=== PATIENT | male | born 1955 | race Caucasian/White ===

== ENCOUNTER 2017-02-09 07:07 | Day surgery (SDC) | payer OTHER ==
[2017-01-29 14:04] VITALS: BMI 30.7
[2017-02-09] MEDS: CYCLOPENTOLATE 2% OPHTH SOLN 2 ML BOTTLE ONE ×3 (07:40→07:50)
[2017-02-09] MEDS: TROPICAMIDE 1% OPHTH SOLN 15 ML BOTTLE ONE ×3 (07:40→07:50)
[2017-02-09] MEDS: PHENYLEPHRINE 2.5% OPHTH SOLN 15 ML BOTTLE ONE ×3 (07:40→07:50)
[2017-02-09] MEDS: CIPROFLOXACIN 0.3% EYE DROPS 5 ML BOTTLE ONE ×3 (07:40→07:50)
[2017-02-09] MEDS ORDERED: MIDAZOLAM HCL 2 MG/2 ML SINGLE DOSE VIAL ONE (09:00)
[2017-02-09 09:40] VITALS: TEMP 98.3
[2017-02-09 10:24] VITALS: BP 131/79; PULSE 65
== END 2017-02-09 10:08 | disposition home or self-care (01) ==
LOC: FASU 07:07
PROVIDERS: ATTEND Ophthalmology
PROC: 08RJ3JZ Replacement of Right Lens with Synthetic Substitute, Percutaneous Approach (ICD-10-PCS; principal; 2017-02-09 09:04)
DX: H26.8 Other specified cataract (principal)

== ENCOUNTER 2017-04-08 06:59 | Day surgery (SDC) | payer OTHER ==
[2017-04-08] MEDS: TROPICAMIDE 1% OPHTH SOLN 15 ML BOTTLE ONE ×3 (07:15→07:25)
[2017-04-08] MEDS: CYCLOPENTOLATE 2% OPHTH SOLN 2 ML BOTTLE ONE ×3 (07:15→07:25)
[2017-04-08] MEDS: PHENYLEPHRINE 2.5% OPHTH SOLN 15 ML BOTTLE ONE ×3 (07:15→07:25)
[2017-04-08] MEDS: CIPROFLOXACIN 0.3% EYE DROPS 5 ML BOTTLE ONE ×3 (07:15→07:25)
[2017-04-08 07:21] VITALS: BMI 30.9
[2017-04-08] MEDS ORDERED: MIDAZOLAM HCL 2 MG/2 ML SINGLE DOSE VIAL ONE (08:45)
[2017-04-08 09:31] VITALS: TEMP 97.7
[2017-04-08 09:44] VITALS: BP 134/62; PULSE 56
--- NOTE | 2017-04-08 21:50 | OP ---
DATE OF PROCEDURE: 04/08/2017 OPERATIVE PROCEDURE: Lens Phacoemulsification with Posterior Chamber Intraocular Lens Placement Left Eye PREOPERATIVE DIAGNOSIS: Visually Significant Cataract of Left Eye POSTOPERATIVE DIAGNOSIS: Visually Significant Cataract of Left Eye SURGEON: Artie Johnson M.D. ANESTHESIA: MAC PROCEDURE: The patient was brought to the operating room and placed under monitored anesthesia care by Anesthesia. A drop of Tetracaine was then placed over the left eye. The patient was then prepped and draped in the usual sterile manner. A speculum was then placed over the left eye. The eye was then well irrigated with copious amounts of BSS (balanced salt solution). The operating microscope was then moved into position. A paracentesis was performed using a 15 degree blade. At this point 0.5 mL of 1% preservative-free lidocaine was injected into the anterior chamber. Amvisc plus was then injected into the anterior chamber. A clear corneal incision was then formed using a 2.2 mm keratome. A capsulorrhexis was then performed in a continuous circular fashion beginning with a cystotome, completed with an Utratas forceps. Hydrodissection was then performed using BSS on a cannula. The phaco probe was then introduced through the corneal wound and the cataract was removed using the phaco chop technique. Approximately 3 seconds of absolute phaco time was used. The remaining cortex was then removed using irrigation and aspiration with an I/A probe. The capsule was then filled with regular Amvisc and the capsule was noted to be intact. A previously selected foldable posterior chamber intraocular lens was then injected into the capsule through the corneal wound using a lens injector. It was then dialed into position using a Sinskey hook. The Amvisc was then removed using irrigation and aspiration. Miostat was then injected through the paracentesis to constrict the pupil. The paracentesis and corneal wound were then hydrated and noted to be water tight. A drop of Maxitrol was then placed over the eye. The speculum was removed and clear shield was taped over the eye. The patient tolerated the procedure well and there were no surgical complications. The patient was asked to follow up in my office the next day. RENU THOMPSON M.D. [id number]
== END 2017-04-08 09:50 | disposition home or self-care (01) ==
LOC: FASU 06:59
PROVIDERS: ATTEND Ophthalmology
PROC: 08RK3JZ Replacement of Left Lens with Synthetic Substitute, Percutaneous Approach (ICD-10-PCS; principal; 2017-04-08 08:53)
DX: H26.9 Unspecified cataract (principal)

== ENCOUNTER 2018-09-06 20:20 | Emergency (ER) | payer OTHER ==
--- NOTE | 2018-09-06 20:22 | PDOC ---
History of Present Illness - General History Source: Patient Exam Limitations: No Limitations - History of Present Illness Initial Comments: 09/06/18 21:37 The patient is a 63 year old male, with no significant past medical history of who presents to the emergency department with diarrhea since Thursday at 9: 30pm. The patient notes he had a frozen dinner with chicken at around 6:30 pm on Thursday and has had diarrhea every 1-4 hours since then. The patient states his last episode was about 2 hours ago (took pepto bismol with relief). Patient notes he lost 8 pounds since then but gained 2 pounds back as of today. The patient complains of dehydration, weakness, and tiredness. The patient notes he had oatmeal, jello and gatorade. The patient denies recent travel or sick contact. The patient denies chest pain, shortness of breath, headache or dizziness. The patient denies fever, chills, nausea, vomit, diarrhea or constipation. The patient denies dysuria, frequency, urgency or hematuria. Allergies:birch, almond, walnut, fruit Past surgical history: knee surgery, cataract surgery Social history: None reported <Adalberto Salgado - Last Filed: 09/06/18 21:36> <Lilliana Yen - Last Filed: 09/07/18 01:34> - General Chief Complaint: Diarrhea Stated Complaint: DIARRHEA, ABD CRAMPING Time Seen by Provider: 09/06/18 20:22 Past History <Adalberto Salgado - Last Filed: 09/06/18 21:36> - Past Medical History Anemia: No Asthma: No Cancer: No Cardiac Disorders: No CVA: No COPD: No CHF: No Dementia: No Diabetes: No GI Disorders: No Disorders: No HTN: No Hypercholesterolemia: No Liver Disease: No Seizures: No Thyroid Disease: No - Surgical History Abdominal Surgery: No Appendectomy: No Cardiac Surgery: No Cholecystectomy: No Lung Surgery: No Neurologic Surgery: No Orthopedic Surgery: Yes (OPEN RIGHT KNEE REPAIR- 2007) - Suicide/Smoking/Psychosocial Hx Smoking History: Never smoked Have you smoked in the past 12 months: No Number of Cigarettes Smoked Daily: 0 Hx Alcohol Use: No Drug/Substance Use Hx: No Substance Use Type: None Hx Substance Use Treatment: No <Lilliana Yen - Last Filed: 09/07/18 01:34> - Past Medical History Allergies/Adverse Reactions: Allergies Allergy/AdvReac Type Severity Reaction Status Date / Time birch Allergy Intermediate MOUTHG Verified 09/06/18 20:23 ITCHING, SWELLING almond Allergy Verified 09/06/18 20:23 No Known Drug Allergies Allergy Verified 09/06/18 20:23 walnut Allergy Verified 09/06/18 20:23 FRUIT Allergy MOUTH Uncoded 09/06/18 20:23 SWELING, ITCHING Home Medications: Ambulatory Orders NK [No Known Home Medication] 09/06/18 Review of Systems - Review of Systems Able to Perform ROS?: Yes Comments:: 09/06/18 21:38 GENERAL/CONSTITUTIONAL: (+) weakness. (+) dehydration. (+) tiredness. No fever or chills. HEAD, EYES, EARS, NOSE AND THROAT: No change in vision. No ear pain or discharge. No sore throat. CARDIOVASCULAR: No chest pain or shortness of breath. RESPIRATORY: No cough, wheezing, or hemoptysis. GASTROINTESTINAL: No nausea, vomiting, diarrhea or constipation. GENITOURINARY: No dysuria, frequency, or change in urination. MUSCULOSKELETAL: No joint or muscle swelling or pain. No neck or back pain. SKIN: No rash NEUROLOGIC: No headache, vertigo, loss of consciousness, or change in strength/ sensation. ENDOCRINE: No increased thirst. (+) weight change. HEMATOLOGIC/LYMPHATIC: No anemia, easy bleeding, or history of blood clots. ALLERGIC/IMMUNOLOGIC: No hives or skin allergy. All Other Systems: Reviewed and Negative <Adalberto Salgado - Last Filed: 09/06/18 21:36> *Physical Exam - Vital Signs Last Vital Signs Temp Pulse Resp BP Pulse Ox 97.8 F 81 16 129/85 96 09/06/18 20:20 09/06/18 20:20 09/06/18 20:20 09/06/18 20:20 09/06/18 20:20 - Physical Exam Comments: 09/06/18 21:38 GENERAL: Awake, alert, and fully oriented, in no acute distress HEAD: No signs of trauma EYES: PERRLA, EOMI, sclera anicteric, conjunctiva clear ENT: Auricles normal inspection, hearing grossly normal, nares patent, oropharynx clear without exudates. Moist mucosa NECK: Normal ROM, supple, no lymphadenopathy, JVD, or masses LUNGS: Breath sounds equal, clear to auscultation bilaterally. No wheezes, and no crackles HEART: Regular rate and rhythm, normal S1 and S2, no murmurs, rubs or gallops ABDOMEN: (+) mild generalized tenderness. Soft, normoactive bowel sounds. No guarding, no rebound. No masses EXTREMITIES: Normal range of motion, no edema. No clubbing or cyanosis. No cords, erythema, or tenderness NEUROLOGICAL: Cranial nerves II through XII grossly intact. Normal speech, normal gait SKIN: Warm, Dry, normal turgor, no rashes or lesions noted. <Adalberto Salgado - Last Filed: 09/06/18 21:36> Moderate Sedation - Procedure Monitoring Vital Signs: Procedure Monitoring Vital Signs Temperature 97.8 F 09/06/18 20:20 Pulse Rate 81 09/06/18 20:20 Respiratory Rate 16 09/06/18 20:20 Blood Pressure 129/85 09/06/18 20:20 O2 Sat by Pulse Oximetry (%) 96 09/06/18 20:20 <Adalberto Salgado - Last Filed: 09/06/18 21:36> ED Treatment Course - LABORATORY CBC & Chemistry Diagram: 09/06/18 20:40 09/06/18 20:40 - ADDITIONAL ORDERS Additional order review: Laboratory Results 09/06/18 20:40 Sodium 131 L Potassium 4.0 Chloride 98 Carbon Dioxide 21 Anion Gap 12 BUN 41 H Creatinine 1.4 H Creat Clearance w eGFR 51.02 Random Glucose 121 H Calcium 8.9 Total Bilirubin 0.7 AST 26 ALT 51 Alkaline Phosphatase 16 L Total Protein 7.1 Albumin 3.8 09/06/18 20:40 RBC 5.95 H MCV 86.1 MCHC 32.2 RDW 20.6 H D MPV 8.5 Neutrophils % 80.8 Lymphocytes % 10.9 Monocytes % 6.8 Eosinophils % 1.0 D Basophils % 0.5 <Adalberto Salgado - Last Filed: 09/06/18 21:36> - LABORATORY CBC & Chemistry Diagram: 09/06/18 20:40 09/06/18 20:40 <Lilliana Yen - Last Filed: 09/07/18 01:34> Progress Note - Progress Note Progress Note: Documentation has been prepared under my direction and personally reviewed by me in its entirety. I attest that this documented accurately reflects all work, treatment, procedures and medical decision making performed by me. <Lilliana Yen - Last Filed: 09/07/18 01:34> Medical Decision Making - Medical Decision Making As noted above, this 63-year-old man presents with history of diarrhea for the last 48 hours. No vomiting/fever/bloody or mucousy stools noted. The frequency of the diarrhea has been decreasing over the last several hours. The patient presents because he is persistently weak with poor appetite. Exam as noted. Laboratory evaluation reveals some evidence of mild hemoconcentration with hemoglobin/hematocrit of 16.5/51.2. Also, BUN is 41 with a creatinine of 1.4. The patient received 2 L of normal saline IV. He felt significantly better after IV hydration. He had no episodes of diarrhea while here in the emergency room. Patient was discharged with instructions to continue oral hydration and advancement of diet as tolerated. Patient had discussed that his family had been giving him oatmeal/Rice which he tolerated but ate little because of his lack of appetite. He was advised to maintain this diet as tolerated. He should return to the ER if he develops any vomiting, significant abdominal pain or fever. <Lilliana Yen - Last Filed: 09/07/18 01:34> *DC/Admit/Observation/Transfer - Attestations Scribe Attestion: 09/06/18 21:38 Documentation prepared by Adalberto Salgado, acting as medical assistant supervisor for Lilliana Yen MD <Adalberto Salgado - Last Filed: 09/06/18 21:36> <Lilliana Yen - Last Filed: 09/07/18 01:34> Diagnosis at time of Disposition: Diarrhea Qualifiers: Diarrhea type: infectious Qualified Code(s): A09 - Infectious gastroenteritis and colitis, unspecified - Discharge Dispostion Disposition: HOME Condition at time of disposition: Stable - Patient Instructions Printed Discharge Instructions: DI for Diarrhea and Traveler's Diarrhea -- Adult Additional Instructions: Continue drinking plenty of fluids as tolerated Advance diet, especially foods that help to limit diarrhea as discussed Pepto-Bismol/Imodium/Kaopectate as needed for any recurrent loose stools Return to ER if you have persistent severe weakness/abdominal pain/fever/ vomiting Follow-up with your general doctor within the next 5 days
[2018-09-06 20:39] VITALS: BP 129/85; PULSE 81; TEMP 97.8; BMI 29.9
[2018-09-06 20:54] LABS: BASO % 0.5 % (0-2.0); HEMATOCRIT 51.2 % (35.4-49); HEMOGLOBIN 16.5 GM/dl (11.7-16.9); LYMPH % 10.9 % (8-40); MCH 27.7 pg (25.7-33.7); MCHC 32.2 g/dl (32.0-35.9); MEAN CELL VOLUME 86.1 fl (80-96); MEAN PLT VOLUME 8.5 fl (7.5-11.1); MONO % 6.8 % (3.8-10.2); NEUT % 80.8 % (42.8-82.8); PLATELET COUNT 298 K/MM3 (134-434); RBC 5.95 M/mm3 (4.00-5.60); RDW 20.6 % (11.9-15.9); WHITE BLOOD COUNT 6.6 K/mm3 (4.0-10.8)
[2018-09-06 21:09] LABS: ALBUMIN 3.8 g/dl (3.4-5.0); ALK PHOS 16 U/L (45-117); ANION GAP 12 MMOL/L (8-16); BILIRUBIN,TOTAL 0.7 mg/dl (0.2-1); BLOOD UREA NITROGEN 41 mg/dl (7-18); CALCIUM 8.9 mg/dl (8.5-10); CHLORIDE 98 mmol/L (98-107); CO2 21 mmol/L (21-32); CREATININE 1.4 mg/dl (0.55-1.3); GLUCOSE,RANDOM 121 mg/dl (74-106); SGOT/AST 26 U/L (15-37); SGPT/ALT 51 U/L (13-61); SODIUM 131 mmol/L (136-145); TOT PROT 7.1 g/dl (6.4-8.2)
[2018-09-06] MEDS ORDERED: SODIUM CHLORIDE 1,000 ML IV STA ×2 (21:14→21:52)
[2018-09-06 22:05] LABS: LIPASE 59 U/L (73-393)
== END 2018-09-06 22:59 | disposition home or self-care (01) ==
LOC: FER 20:20
PROC: 3E0337Z Introduction of Electrolytic and Water Balance Substance into Peripheral Vein, Percutaneous Approach (ICD-10-PCS; principal; 2018-09-06)
DX: A09 Infectious gastroenteritis and colitis, unspecified (principal)
CPT/HCPCS: 36415; 80053; 83690; 85025; 96360; 96361; 99282-25; J7030